=== PATIENT | female | born 1990 | race Caucasian/White ===

== ENCOUNTER 2018-03-31 06:10 | Day surgery (SDC) | payer MEDICAID ==
[2018-03-27 15:46] LABS: BASOPHILS % (AUTO) 0.6 % (0-1); EOSINOPHILS # (AUTO) 0.4 X10'3 (0-0.9); EOSINOPHILS % (AUTO) 5.6 % (0-6); LYMPHOCYTES # (AUTO) 2.3 X10'3 (1.1-4.8); LYMPHOCYTES % (AUTO) 34.2 % (21-51); MEAN CORPUSCULAR HEMOGLOBIN 29.9 PG (27.0-31.0); MEAN CORPUSCULAR HGB CONC 33.8 % (33.0-36.5); MEAN CORPUSCULAR VOLUME 88.4 FL (78-98); MEAN PLATELET VOLUME 9.3 FL (7.4-10.4); MONOCYTES # (AUTO) 0.3 X10'3 (0-0.9); MONOCYTES % (AUTO) 4.8 % (2-12); NEUTROPHILS # (AUTO) 3.8 X10'3 (1.8-7.7); NEUTROPHILS % (AUTO) 54.8 % (42-75); PRE OP HEMATOCRIT 40.7 % (35.0-45.0); PRE OP HEMOGLOBIN 13.7 g/dL (12.0-16.0); PRE OP PLATELET COUNT 249 X10'3 (140-440); RED CELL DISTRIBUTION WIDTH 12.1 % (11.5-14.5)
[2018-03-27 15:47] LABS: ALBUMIN 4.3 G/DL (3.4-5.0); ALBUMIN/GLOBULIN RATIO 1.2 (1.1-1.5); ALKALINE PHOSPHATASE 62 IU/L (46-116); BLOOD UREA NITROGEN 14 MG/DL (7-18); BUN/CREATININE RATIO 16.5 (6.6-38.0); CALCIUM 9.3 MG/DL (8.5-10.1); CHLORIDE 102 MMOL/L (99-107); CREATININE 0.85 MG/DL (0.40-0.90); PRE OP ALT 21 U/L (30-65); PRE OP ANION GAP 10 (8-16); PRE OP AST 12 U/L (10-37); PRE OP BILIRUB, TOTAL 0.6 MG/DL (0.0-1.0); PRE OP GLUCOSE 100 MG/DL (70-104); PRE OP POTASSIUM 3.7 MMOL/L (3.4-5.1); PRE OP SODIUM 140 MMOL/L (135-145); TOTAL CARBON DIOXIDE 27.6 MMOL/L (24-32); TOTAL PROTEIN 7.9 G/DL (6.4-8.2); eGFR 80 ML/MIN
[2018-03-27 16:50] LABS: HCG SERUM QL NEGATIVE
[~2018-03-31] VITALS: Ht 177.8 cm; Wt 69.0 kg
[~2018-03-31 06:10] MED LIST: NO HOME MEDS; ceFAZolin 1GM/D5W- ADD-VANTAGE 50 ML IV ONE; famotidine 20mg tablet PO ONE; ringers solution, lacted 1,000 ML IV SCH
[2018-03-31 07:00] VITALS: BP 101/68
[2018-03-31] MEDS ORDERED: BUPIVAcaine/PF 2.5mg/ml (0.25%) 10ml vial ONE (07:05)
[2018-03-31] MEDS ORDERED: meperidine/PF 25mg/ml syringe IV PRN ×3 (07:50)
[2018-03-31] MEDS ORDERED: morphine 4 MG/ML inj SYRINge IV PRN ×2 (07:50)
[2018-03-31] MEDS ORDERED: ringers solution, lacted 1,000 ML IV SCH (07:50)
[2018-03-31] MEDS ORDERED: proCHLORperazine 10 MG/2 ml inj IV PRN (07:50)
[2018-03-31] MEDS ORDERED: ondansetron/PF 4mg/2ml inj IV PRN (07:50)
[2018-03-31] MEDS ORDERED: LIDOcaine 0.5% (5mg/ml) 50ml vial ONE ×2 (08:39→08:41)
[2018-03-31] MEDS ORDERED: fentaNYL/PF 50MCG/1 ML 2ML syringe ONE (08:43)
[2018-03-31] MEDS ORDERED: midazolam 2 mg/2 ml injection ONE (08:43)
[2018-03-31] MEDS ORDERED: propofol inj 20 ML IV ONE (09:20)
[2018-03-31 09:22] VITALS: BP 108/66
--- NOTE | 2018-03-31 09:22 | NUR ---
Received from OR via [facility], accompanied by Anesthesiologist DR NG and report given by Anesthesiologist. PT AWAKE, DENIES PAIN, LEFT WRIST W/DRSG AND CARI WRAP COVERING CDI. Addendum: 03/31/18 at 0938 by Sleina Minor RN Amended: Links added.
[2018-03-31 09:32] VITALS: BP 102/75
[2018-03-31 09:42] VITALS: BP 110/76
== END 2018-03-31 09:52 | disposition home or self-care (01) ==
LOC: PAS 06:10
PROVIDERS: ATTEND Orthopaedic Surgery Hand Surgery
DX: M67.432 Ganglion, left wrist (principal); Z88.0 Allergy status to penicillin; Z79.891 Long term (current) use of opiate analgesic; Z79.899 Other long term (current) drug therapy
CPT/HCPCS: 25111; 36415; 80053; 84703; 85025; A6222; A6449; J0690; J2001; J2250; J2704; J3010; J3490; J7120; A7000